=== PATIENT | female | born 1975 | race Caucasian/White ===

== ENCOUNTER 2017-02-23 10:15 | Day surgery (SDC) | payer MEDICAID ==
[~2017-02-23] VITALS: Ht 167.6 cm; Wt 139.0 kg
[~2017-02-23 10:15] MED LIST: BACL-19 PO; BUTA-177 PO; CARI250T PO; CYAN10005 PO; DIME240C PO; DIVA500T2 PO; FURO20TA3 PO; GABA300C10 PO; GABA800T2 PO; HYDR-3138 PO; IBUP800T PO; MAGN500T PO; METH750T87 PO; NAPR500T3 PO; ONDA4TAB7 PO; POTA10CA PO; SUMA100T3 PO; TRAM50TA2 PO; ZOLP10TA PO
[2017-02-23] MEDS ORDERED: MIDAZOLAM 1 MG/ML, 5ML ONE (12:18)
[2017-02-23] MEDS ORDERED: FENTANYL PF 100 MCG/2ML ONE (12:18)
[2017-02-23] MEDS ORDERED: ROCURONIUM 10 MG/ML ONE (12:26)
[2017-02-23] MEDS ORDERED: PROPOFOL 10 MG/ML, 20ML ONE (12:26)
[2017-02-23] MEDS ORDERED: SUCCINYLCHOLINE 20 MG/ML, 10ML ONE (12:26)
[2017-02-23] MEDS ORDERED: ONDANSETRON 2MG/ML, 2ML ONE (12:26)
[2017-02-23] MEDS ORDERED: GADOBUTROL 10 MMOL/10 ML PFS ONE (14:16)
[2017-02-23 15:26] LABS: HCG UR OBC PASS
[2017-02-23] MEDS: LACTATED RINGERS 1,000 ML IV SCH ×2 (15:59→19:01)
== END 2017-02-23 16:25 | disposition home or self-care (01) ==
LOC: SDC 10:15 → EDSTATUS 02-24 13:45
PROVIDERS: ATTEND Registered Nurse
DX: M51.24 Other intervertebral disc displacement, thoracic region (principal); M48.02 Spinal stenosis, cervical region; M50.31 Other cervical disc degeneration, high cervical region; G35 Multiple sclerosis; E66.01 Morbid (severe) obesity due to excess calories; Z68.42 Body mass index [BMI] 45.0-49.9, adult; G43.711 Chronic migraine without aura, intractable, with status migrainosus; M32.9 Systemic lupus erythematosus, unspecified; J45.909 Unspecified asthma, uncomplicated; F31.9 Bipolar disorder, unspecified; F17.210 Nicotine dependence, cigarettes, uncomplicated
CPT/HCPCS: 70553; 72156; 72157; 81025; A9585; J0330; J2250; J2405; J2704; J3010; J7120

== ENCOUNTER 2019-11-05 19:01 | Emergency (ER) | payer SELFPAY ==
[~2019-11-05] VITALS: Ht 167.6 cm; Wt 120.4 kg
[~2019-11-05 19:01] MED LIST changes: +CYAN-27 PO; -CYAN10005 PO; -GABA800T2 PO; +GABA800T5 PO; -HYDR-3138 PO; +HYDR-3237 PO; +IBUP-1223 PO; -IBUP800T PO; +NAPR-685 PO; -NAPR500T3 PO
[2019-11-05 19:32] VITALS: BP 156/96
[2019-11-05] MEDS ORDERED: LIDOCAINE-MPF 1%, 5ML ONE (19:56)
--- NOTE | 2019-11-05 19:57 | NUR ---
MEDS PULLED FOR PROVIDER ADMIN
[2019-11-05] MEDS ORDERED: LIDOCAINE 1%, 10ML INFIL ONE (20:00)
== END 2019-11-05 21:36 | disposition home or self-care (01) ==
LOC: ED 20:00
DX: L60.0 Ingrowing nail (principal); M79.674 Pain in right toe(s); F17.200 Nicotine dependence, unspecified, uncomplicated
CPT/HCPCS: 11730; 99284

== ENCOUNTER 2020-02-07 18:36 | Inpatient (IN) | payer MEDICAID ==
[~2020-02-07] VITALS: Ht 167.6 cm; Wt 93.3 kg
--- NOTE | 2020-02-07 19:00 | NUR ---
DR ESPINOSA BS FOR EXAM
--- NOTE | 2020-02-07 19:07 | NUR ---
RT LOWER ABD CYST; NOTICED A WEEK AGO. "WE'VE POKED IT WITH EVERYTHING AND I JUST GET A LITTLE PUS OUT".
[2020-02-07] MEDS ORDERED: AMPICILLIN/SULBACTAM 3 GM in SODIUM CHLORIDE 0.9% 100 ML IV ONE (19:09)
[2020-02-07] MEDS ORDERED: PRIMIDONE (19:17)
[2020-02-07] MEDS ORDERED: WELLBUTRIN (19:17)
[2020-02-07] MEDS ORDERED: MECL-101 PO (19:17)
[2020-02-07] MEDS ORDERED: LYRICA (19:17)
--- NOTE | 2020-02-07 19:24 | NUR ---
AMBULATORY TO & FROM [facility] W/OUT INCIDENT; GAIT STEADY.
[2020-02-07] MEDS ORDERED: SODIUM CHLORIDE FLUSH 10ML SYR IVF ONE (19:30)
[2020-02-07] MEDS ORDERED: LIDOCAINE 1%-EPI 1:100K, 20ML INFIL ONE (19:30)
[2020-02-07] MEDS ORDERED: ONDANSETRON 2MG/ML, 2ML IVPush ONE (19:30)
[2020-02-07 19:43] LABS: MEAN CORPUSCULAR HEMOGLOBIN 33.6 pg (27.0-34.8); MEAN CORPUSCULAR HGB CONC 33.7 g/dL (32.4-35.8); MEAN CORPUSCULAR VOLUME 99.9 fL (80-100); PLATELET COUNT 325 x10^3/uL (130-400); RED BLOOD COUNT 4.66 x10^6/uL (3.82-5.3); RED CELL DISTRIBUTION WIDTH 13.9 % (9.6-15.2)
--- NOTE | 2020-02-07 19:46 | NUR ---
IV INITIATED. BLD CX 2ND SET DRAWN
[2020-02-07] MEDS ORDERED: LIDOCAINE 1%-EPI 1:100K, 20ML ONE (19:48)
[2020-02-07] MEDS ORDERED: MORPHINE SULFATE 4 MG/ML, 1ML ONE ×2 (19:49→21:29)
[2020-02-07] MEDS ORDERED: ONDANSETRON 2MG/ML, 2ML ONE (19:49)
[2020-02-07 19:50] LABS: ALANINE AMINOTRANSFERASE 31 U/L (12-78); ALBUMIN 3.2 g/dL (3.4-5.0); ANION GAP 8 mmol/L (5-15); CALCIUM 8.7 mg/dL (8.5-10.1); CHLORIDE 101 mmol/L (98-107); CREATININE 0.77 mg/dL (0.55-1.02)
[2020-02-07 19:52] LABS: ALKALINE PHOSPHATASE 177 U/L (45-117); BILIRUBIN,TOTAL 0.4 mg/dL (0.2-1.0); TOTAL PROTEIN 7.2 g/dL (6.4-8.2)
[2020-02-07 19:58] LABS: MICROSCOPIC NOT IND
--- NOTE | 2020-02-07 19:58 | NUR ---
DR ESPINOSA BS FOR I&D.
[2020-02-07] MEDS: MORPHINE SULFATE 4 MG/ML, 1ML IVPush PRN ×2 (19:59→21:36)
--- NOTE | 2020-02-07 20:01 | NUR ---
ZOFRAN AND MORPHINE GIVEN PER EMAR.
--- NOTE | 2020-02-07 20:35 | NUR ---
PT TO CT PER OZZY
[2020-02-07 20:40] LABS: BASOPHILS % (AUTO) 0 % (0-1); EOSINOPHILS # (AUTO) 0.36 x10^3/uL (0-0.4); EOSINOPHILS % (AUTO) 3 % (1-7); LYMPHOCYTES # (AUTO) 1.77 x10^3/uL (1-3.4); LYMPHOCYTES % (AUTO) 14 % (22-44); MD SCAN; MONOCYTES # (AUTO) 0.56 x10^3/uL (0.2-0.8); MONOCYTES % (AUTO) 4 % (2-9); NEUTROPHILS # (AUTO) 10.35 x10^3/uL (1.8-6.8); NEUTROPHILS % (AUTO) 79 % (42-75)
--- NOTE | 2020-02-07 20:55 | NUR ---
HOSPITALIST BS FOR EXAM, ASSISTED BY THIS RN. PT C/O PAIN. PAIN MED TO BE ORDERED.
[2020-02-07] MEDS ORDERED: hydrALAzine 20 MG/ML, 1ML IVPush PRN (21:00)
[2020-02-07] MEDS ORDERED: ONDANSETRON 2MG/ML, 2ML IVPush PRN (21:00)
[2020-02-07] MEDS: SODIUM CHLORIDE 0.9% 1,000 ML IV SCH (21:26)
--- NOTE | 2020-02-07 21:37 | NUR ---
PT EXPERIENCING ITCHINESS TO LT ARM POST IV MORPHINE INJECTION. WILL NOTIFY ERP.
[2020-02-07] MEDS ORDERED: DIPHENHYDRAMINE 50 MG/ML, 1ML ONE (21:41)
--- NOTE | 2020-02-07 21:45 | NUR ---
BENADRYL GIVEN PER EMAR.
[2020-02-07] MEDS ORDERED: DIPHENHYDRAMINE 50 MG/ML, 1ML IVPush ONE (22:00)
--- NOTE | 2020-02-07 22:08 | NUR ---
CALLED RECEIVING UNIT; RN NOT CURRENTLY AVAILABLE, SHE WILL CALL BACK.
--- NOTE | 2020-02-07 22:16 | NUR ---
PT REPORT TO LUCY FALCON FOR ROOM 360
[2020-02-07 23:11] VITALS: BP 112/73
[2020-02-08 00:19] VITALS: BP 112/73
[2020-02-08] MEDS: SODIUM CHLORIDE 0.9% 1,000 ML IV SCH ×2 (02:07→11:41)
[2020-02-08] MEDS: morphine SULFATE 10 MG/ML, 1ML IVPush PRN ×5 (02:07→21:02)
[2020-02-08] MEDS: CLINDAMYCIN PMX 600MG/50ML 50 ML IV SCH ×4 (05:35→23:10)
[2020-02-08 06:37] LABS: BASOPHILS # (AUTO) 0.03 x10^3/uL (0-0.1); BASOPHILS % (AUTO) 0 % (0-1); EOSINOPHILS # (AUTO) 0.25 x10^3/uL (0-0.4); EOSINOPHILS % (AUTO) 2 % (1-7); LYMPHOCYTES # (AUTO) 2.14 x10^3/uL (1-3.4); LYMPHOCYTES % (AUTO) 19 % (22-44); MD NO; MEAN CORPUSCULAR HEMOGLOBIN 33.1 pg (27.0-34.8); MEAN CORPUSCULAR HGB CONC 33.1 g/dL (32.4-35.8); MEAN CORPUSCULAR VOLUME 100.2 fL (80-100); MEAN PLATELET VOLUME 8.4 fL (7.4-10.4); MONOCYTES # (AUTO) 0.79 x10^3/uL (0.2-0.8); MONOCYTES % (AUTO) 7 % (2-9); NEUTROPHILS # (AUTO) 7.91 x10^3/uL (1.8-6.8); NEUTROPHILS % (AUTO) 71 % (42-75); PLATELET COUNT 293 x10^3/uL (130-400); RED BLOOD COUNT 4.33 x10^6/uL (3.82-5.3); RED CELL DISTRIBUTION WIDTH 13.8 % (9.6-15.2)
[2020-02-08 06:45] LABS: ANION GAP 9 mmol/L (5-15); CALCIUM 8.1 mg/dL (8.5-10.1); CHLORIDE 106 mmol/L (98-107)
[2020-02-08 06:46] LABS: CREATININE 0.56 mg/dL (0.55-1.02)
[2020-02-08 07:52] VITALS: BP 144/81
[2020-02-08] MEDS: INSULIN LISPRO 100 UNITS/ML, PEN SQ-INSULIN SCH ×5 (08:00→22:03)
[2020-02-08] MEDS: DOXYCYCLINE 100MG TABLET PO SCH ×2 (08:57→21:03)
[2020-02-08] MEDS: HYDROcodone/APAP 5/325 TABLET PO PRN ×2 (11:41→19:27)
[2020-02-08] MEDS ORDERED: SUMATRIPTAN 100 MG TABLET PO PRN (12:00)
[2020-02-08] MEDS ORDERED: PREG300C PO (12:15)
[2020-02-08] MEDS ORDERED: PRIM50TA34 PO (12:21)
[2020-02-08] MEDS ORDERED: BUPR150T73 PO (12:22)
[2020-02-08] MEDS: BUTALB/APAP/CAFFEINE 50MG/325MG/40MG PO PRN (12:32)
[2020-02-08 13:56] VITALS: BP 153/82
[2020-02-08] MEDS: METHOCARBAMOL 750 MG TABLET PO SCH ×2 (14:31→22:03)
[2020-02-08] MEDS: INSULIN GLARGINE 100 UNITS/ML, PEN SQ-INSULIN SCH ×2 (15:42→22:03)
[2020-02-08 18:28] VITALS: BP 136/75
[2020-02-08] MEDS: PRIMIDONE 50 MG TABLET PO SCH (21:02)
[2020-02-08] MEDS: ZOLPIDEM 10MG TABLET PO SCH (21:03)
[2020-02-08] MEDS: ACETAMINOPHEN 325 MG TABLET PO PRN (21:03)
[2020-02-08] MEDS: BUPROPION SR 150 MG TABLET PO SCH (21:03)
[2020-02-09 00:49] VITALS: BP 111/68
[2020-02-09] MEDS: HYDROcodone/APAP 5/325 TABLET PO PRN ×3 (04:38→18:48)
[2020-02-09] MEDS: METHOCARBAMOL 750 MG TABLET PO SCH ×3 (05:30→22:09)
[2020-02-09] MEDS: CLINDAMYCIN PMX 600MG/50ML 50 ML IV SCH ×4 (05:30→23:16)
[2020-02-09] MEDS: INSULIN LISPRO 100 UNITS/ML, PEN SQ-INSULIN SCH ×4 (08:00→21:58)
[2020-02-09] MEDS ORDERED: INSULIN GLARGINE 100 UNITS/ML, PEN SQ-INSULIN SCH (09:00)
[2020-02-09] MEDS: BUPROPION SR 150 MG TABLET PO SCH ×2 (09:23→21:50)
[2020-02-09] MEDS: PRIMIDONE 50 MG TABLET PO SCH ×2 (09:23→21:51)
[2020-02-09] MEDS: DOXYCYCLINE 100MG TABLET PO SCH ×2 (09:23→21:50)
[2020-02-09] MEDS: morphine SULFATE 10 MG/ML, 1ML IVPush PRN ×3 (09:36→21:48)
[2020-02-09 10:50] VITALS: BP 138/77
[2020-02-09] MEDS: BUTALB/APAP/CAFFEINE 50MG/325MG/40MG PO PRN (11:46)
[2020-02-09] MEDS: ACETAMINOPHEN 325 MG TABLET PO PRN (14:24)
[2020-02-09 14:57] VITALS: BP 130/72
[2020-02-09 21:45] VITALS: BP 138/72
[2020-02-09] MEDS: ZOLPIDEM 10MG TABLET PO SCH (21:51)
[2020-02-09] MEDS: INSULIN GLARGINE 100 UNITS/ML, PEN SQ-INSULIN SCH (21:59)
[2020-02-10] MEDS: morphine SULFATE 10 MG/ML, 1ML IVPush PRN ×3 (01:13→11:09)
[2020-02-10] MEDS: CLINDAMYCIN PMX 600MG/50ML 50 ML IV SCH ×4 (05:36→22:39)
[2020-02-10] MEDS: METHOCARBAMOL 750 MG TABLET PO SCH ×3 (05:42→22:40)
[2020-02-10 07:30] VITALS: BP 131/81
[2020-02-10] MEDS: INSULIN LISPRO 100 UNITS/ML, PEN SQ-INSULIN SCH ×4 (08:20→23:02)
[2020-02-10] MEDS: INSULIN GLARGINE 100 UNITS/ML, PEN SQ-INSULIN SCH (08:21)
[2020-02-10] MEDS: PRIMIDONE 50 MG TABLET PO SCH ×2 (08:21→22:40)
[2020-02-10] MEDS: DOXYCYCLINE 100MG TABLET PO SCH ×2 (08:21→22:40)
[2020-02-10] MEDS: BUPROPION SR 150 MG TABLET PO SCH ×2 (08:21→22:40)
[2020-02-10] MEDS: HYDROcodone/APAP 5/325 TABLET PO PRN ×3 (08:54→22:42)
[2020-02-10] MEDS: BUTALB/APAP/CAFFEINE 50MG/325MG/40MG PO PRN ×2 (11:32→23:35)
[2020-02-10 15:07] VITALS: BP 134/78
[2020-02-10] MEDS ORDERED: INSULIN GLARGINE 100 UNITS/ML, PEN SQ-INSULIN SCH (21:00)
[2020-02-10] MEDS: ZOLPIDEM 10MG TABLET PO SCH (22:41)
[2020-02-10] MEDS: ACETAMINOPHEN 325 MG TABLET PO PRN (23:35)
[2020-02-11] MEDS: CLINDAMYCIN PMX 600MG/50ML 50 ML IV SCH ×4 (00:43→18:19)
[2020-02-11] MEDS: morphine SULFATE 10 MG/ML, 1ML IVPush PRN ×4 (00:43→21:38)
[2020-02-11 00:52] VITALS: BP 124/73
[2020-02-11 06:06] LABS: BASOPHILS # (AUTO) 0.03 x10^3/uL (0-0.1); BASOPHILS % (AUTO) 1 % (0-1); EOSINOPHILS # (AUTO) 0.42 x10^3/uL (0-0.4); EOSINOPHILS % (AUTO) 6 % (1-7); LYMPHOCYTES # (AUTO) 2.08 x10^3/uL (1-3.4); LYMPHOCYTES % (AUTO) 31 % (22-44); MD NO; MEAN CORPUSCULAR HEMOGLOBIN 33.2 pg (27.0-34.8); MEAN CORPUSCULAR HGB CONC 33.1 g/dL (32.4-35.8); MEAN CORPUSCULAR VOLUME 100.4 fL (80-100); MONOCYTES # (AUTO) 0.52 x10^3/uL (0.2-0.8); MONOCYTES % (AUTO) 8 % (2-9); NEUTROPHILS # (AUTO) 3.68 x10^3/uL (1.8-6.8); NEUTROPHILS % (AUTO) 55 % (42-75); PLATELET COUNT 321 x10^3/uL (130-400); RED BLOOD COUNT 4.32 x10^6/uL (3.82-5.3); RED CELL DISTRIBUTION WIDTH 13.9 % (9.6-15.2)
[2020-02-11 06:07] LABS: ANION GAP 6 mmol/L (5-15); CHLORIDE 107 mmol/L (98-107)
[2020-02-11 06:08] LABS: CREATININE 0.47 mg/dL (0.55-1.02)
[2020-02-11] MEDS: METHOCARBAMOL 750 MG TABLET PO SCH ×3 (06:30→21:52)
[2020-02-11 07:55] VITALS: BP 144/74
[2020-02-11] MEDS: BUPROPION SR 150 MG TABLET PO SCH ×2 (08:02→21:38)
[2020-02-11] MEDS: PRIMIDONE 50 MG TABLET PO SCH ×2 (08:02→21:39)
[2020-02-11] MEDS: DOXYCYCLINE 100MG TABLET PO SCH ×2 (08:02→21:39)
[2020-02-11] MEDS: INSULIN LISPRO 100 UNITS/ML, PEN SQ-INSULIN SCH ×4 (08:03→21:49)
[2020-02-11] MEDS: BUTALB/APAP/CAFFEINE 50MG/325MG/40MG PO PRN ×2 (08:21→21:38)
[2020-02-11] MEDS: ACETAMINOPHEN 325 MG TABLET PO PRN (08:21)
[2020-02-11] MEDS: HYDROcodone/APAP 5/325 TABLET PO PRN ×2 (08:21→14:21)
[2020-02-11] MEDS ORDERED: INSULIN GLARGINE 100 UNITS/ML, PEN SQ-INSULIN SCH ×2 (09:00→21:00)
[2020-02-11 15:25] VITALS: BP 146/93
[2020-02-11 20:58] VITALS: BP 117/76
[2020-02-11] MEDS: ZOLPIDEM 10MG TABLET PO SCH (21:38)
[2020-02-12] MEDS: CLINDAMYCIN PMX 600MG/50ML 50 ML IV SCH ×3 (01:09→12:17)
[2020-02-12 03:39] VITALS: BP 111/66
[2020-02-12] MEDS: METHOCARBAMOL 750 MG TABLET PO SCH ×2 (06:58→14:32)
[2020-02-12 07:54] VITALS: BP 138/71
[2020-02-12] MEDS: INSULIN LISPRO 100 UNITS/ML, PEN SQ-INSULIN SCH ×2 (08:07→12:15)
[2020-02-12] MEDS: HYDROcodone/APAP 5/325 TABLET PO PRN ×2 (08:14→14:33)
[2020-02-12] MEDS: PRIMIDONE 50 MG TABLET PO SCH (08:14)
[2020-02-12] MEDS: DOXYCYCLINE 100MG TABLET PO SCH (08:14)
[2020-02-12] MEDS: BUPROPION SR 150 MG TABLET PO SCH (08:14)
[2020-02-12] MEDS ORDERED: INSULIN GLARGINE 100 UNITS/ML, PEN SQ-INSULIN SCH (09:00)
[2020-02-12] MEDS: BUTALB/APAP/CAFFEINE 50MG/325MG/40MG PO PRN (10:30)
[2020-02-12 14:45] VITALS: BP 127/81
[2020-02-12] MEDS ORDERED: INSU100I11 SQ-INSULIN (15:03)
[2020-02-12] MEDS ORDERED: INSU100I13 SQ-INSULIN (15:03)
[2020-02-12] MEDS ORDERED: CLIN300C8 PO (15:12)
[2020-02-12] MEDS ORDERED: OXYC5TAB3 PO (15:24)
[2020-02-12] MEDS ORDERED: OXYcodone IR 5MG TABLET PO PRN (15:30)
== END 2020-02-12 16:53 | disposition home or self-care (01) | DRG 602 ==
LOC: ED 20:09 → EDIP 20:49 → 3N 22:45
PROVIDERS: ADMIT Internal Medicine; ATTEND Hospitalist
DX: L03.314 Cellulitis of groin (principal); J18.9 Pneumonia, unspecified organism; Z68.41 Body mass index [BMI] 40.0-44.9, adult; E11.9 Type 2 diabetes mellitus without complications; L03.311 Cellulitis of abdominal wall; E66.01 Morbid (severe) obesity due to excess calories; F17.200 Nicotine dependence, unspecified, uncomplicated; F32.9 Major depressive disorder, single episode, unspecified; M79.7 Fibromyalgia; R53.82 Chronic fatigue, unspecified; G43.909 Migraine, unspecified, not intractable, without status migrainosus; G35 Multiple sclerosis; M32.9 Systemic lupus erythematosus, unspecified; Z88.1 Allergy status to other antibiotic agents; Z82.3 Family history of stroke; Z87.01 Personal history of pneumonia (recurrent)
CPT/HCPCS: 36415; 71045; 72192; 80048; 80053; 81003; 82962; 83036; 83605; 84145; 85025; 87040; 96365; 96375; 99285; G0378; J0295; J2405; J3490; J1200; J1815; J2270; J7030

== ENCOUNTER 2020-09-22 01:55 | Inpatient (IN) | payer MEDICAID ==
[~2020-09-22] VITALS: Ht 167.6 cm; Wt 144.8 kg
[~2020-09-22 01:55] MED LIST changes: +BUPR150T73 PO; +CLIN300C9 PO; +INSU100I11 SQ-INSULIN; +INSU100I13 SQ-INSULIN; +LYRICA; +MECL-101 PO; +OXYC5TAB3 PO; +PREG300C PO; +PRIM50TA34 PO; +PRIMIDONE; +WELLBUTRIN
[2020-09-22] MEDS ORDERED: SODIUM CHLORIDE 0.9% 1,000ML IVBOLUS ONE ×2 (02:30→03:00)
[2020-09-22] MEDS ORDERED: ONDANSETRON 2MG/ML, 2ML IVPush ONE (02:30)
[2020-09-22] MEDS ORDERED: ONDANSETRON 2MG/ML, 2ML ONE (02:42)
[2020-09-22] MEDS ORDERED: MORPHINE SULFATE 4 MG/ML, 1ML ONE ×2 (02:42→03:39)
[2020-09-22 02:54] LABS: BASOPHILS % (AUTO) 0 % (0-1); EOSINOPHILS % (AUTO) 1 % (1-7); LYMPHOCYTES % (AUTO) 6 % (22-44); MEAN CORPUSCULAR HGB CONC 33.4 g/dL (32.4-35.8); MEAN PLATELET VOLUME 8.1 fL (7.4-10.4); MONOCYTES % (AUTO) 3 % (2-9); NEUTROPHILS % (AUTO) 90 % (42-75); PLATELET COUNT 194 x10^3/uL (130-400); RED BLOOD COUNT 4.59 x10^6/uL (3.82-5.3); RED CELL DISTRIBUTION WIDTH 14.4 % (9.6-15.2)
[2020-09-22] MEDS: MORPHINE SULFATE 4 MG/ML, 1ML IVPush PRN ×2 (02:57→03:46)
[2020-09-22] MEDS ORDERED: CEFTRIAXONE PMX 1GM/50ML 50 ML ONE (02:59)
[2020-09-22] MEDS ORDERED: AZITHROMYCIN 500 MG in SODIUM CHLORIDE 0.9% 250 ML IV ONE (03:00)
[2020-09-22] MEDS ORDERED: CEFTRIAXONE PMX 1GM/50ML 50 ML IV ONE (03:00)
[2020-09-22 03:03] LABS: ALANINE AMINOTRANSFERASE 19 U/L (12-78); ALBUMIN 2.6 g/dL (3.4-5.0); ANION GAP 7 mmol/L (5-15); CHLORIDE 105 mmol/L (98-107)
[2020-09-22 03:06] LABS: ALKALINE PHOSPHATASE 169 U/L (45-117); BILIRUBIN,TOTAL 0.9 mg/dL (0.2-1.0); CREATININE 0.77 mg/dL (0.55-1.02); TOTAL PROTEIN 7.1 g/dL (6.4-8.2); TROPONIN I < 0.015 ng/mL (0.000-0.045)
[2020-09-22 03:39] LABS: MD SCAN
[2020-09-22] MEDS ORDERED: BENZONATATE 100 MG CAPSULE ONE (03:39)
[2020-09-22] MEDS ORDERED: SODIUM CHLORIDE 0.9% 1,000 ML IV ONE (04:00)
--- NOTE | 2020-09-22 04:17 | NUR ---
Report to Venessa AYALA
[2020-09-22 05:00] VITALS: BP 110/66
[2020-09-22] MEDS ORDERED: morphine SULFATE 10 MG/ML, 1ML IVPush PRN (05:30)
[2020-09-22] MEDS ORDERED: METHOCARBAMOL 750 MG TABLET PO PRN (05:30)
[2020-09-22] MEDS ORDERED: MECLIZINE 25 MG TABLET PO PRN (05:30)
[2020-09-22] MEDS ORDERED: hydrALAzine 20 MG/ML, 1ML IVPush PRN (05:30)
[2020-09-22] MEDS ORDERED: ONDANSETRON 2MG/ML, 2ML IVPush PRN (05:30)
[2020-09-22] MEDS ORDERED: ENOXAPARIN 30 MG/0.3 ML SQ SCH (05:30)
[2020-09-22 05:53] VITALS: BP 109/64
[2020-09-22] MEDS: OXYcodone IR 5MG TABLET PO PRN ×2 (06:08→17:31)
[2020-09-22 06:37] LABS: C-REACTIVE PROTEIN, QUANT > 19.00 mg/dL (0.02-0.49)
[2020-09-22 07:08] VITALS: BP 90/61
[2020-09-22] MEDS ORDERED: OMNIPAQUE 350 MG/ML, 75ML BOTTLE ONE (08:21)
[2020-09-22] MEDS ORDERED: DEXAMETHASONE 4 MG/ML, 1ML IVPush SCH (09:00)
[2020-09-22] MEDS ORDERED: DOXYCYCLINE 100MG TABLET PO SCH (09:00)
[2020-09-22] MEDS ORDERED: CHOLECALCIFEROL 5,000u TAB PO SCH (09:00)
[2020-09-22] MEDS ORDERED: THIAMINE 100MG TABLET PO SCH (09:00)
[2020-09-22] MEDS: ACETAMINOPHEN 325 MG TABLET PO PRN (09:21)
[2020-09-22] MEDS: PRIMIDONE 50 MG TABLET PO SCH ×2 (09:21→21:22)
[2020-09-22] MEDS: BUPROPION SR 150 MG TABLET PO SCH ×2 (09:21→21:22)
[2020-09-22] MEDS ORDERED: REMDESIVIR 200 MG in SODIUM CHLORIDE 0.9% 250 ML IVPB ONE (10:30)
[2020-09-22] MEDS: ASCORBIC ACID 500 MG TABLET PO SCH ×2 (10:31→17:30)
[2020-09-22] MEDS: CEFTRIAXONE PMX 2GM/50ML 50 ML IV SCH (10:31)
[2020-09-22] MEDS ORDERED: ALBUTEROL HFA 90 MCG/SPRAY INH PRN (11:00)
[2020-09-22] MEDS: INSULIN GLARGINE 100 UNITS/ML, PEN SQ-INSULIN SCH ×2 (11:37→21:23)
[2020-09-22] MEDS ORDERED: ZINC SULFATE 220 MG CAPSULE PO SCH (12:00)
[2020-09-22 12:14] VITALS: BP 105/66
[2020-09-22] MEDS ORDERED: KETOROLAC 30 MG/1 ML ONE (13:35)
[2020-09-22] MEDS: KETOROLAC 30 MG/1 ML IM SCH ×2 (15:27→21:24)
[2020-09-22] MEDS: methylPREDNISolone SOD SUCC 40 MG/ML IV SCH (17:31)
[2020-09-22] MEDS: INSULIN LISPRO 100 UNITS/ML, PEN SQ-INSULIN SCH ×2 (18:53→21:23)
[2020-09-22 19:18] VITALS: BP 117/77
[2020-09-22] MEDS ORDERED: MELATONIN 5 MG TABLET PO SCH (21:00)
[2020-09-22] MEDS: GUAIFENESIN/COD200MG-20MG/10ML LIQUID PO PRN (21:21)
[2020-09-22] MEDS: ZOLPIDEM 10MG TABLET PO SCH (21:22)
[2020-09-23 01:02] VITALS: BP 107/68
[2020-09-23] MEDS ORDERED: AZITHROMYCIN 500 MG in SODIUM CHLORIDE 0.9% 250 ML IV SCH (03:00)
[2020-09-23] MEDS: KETOROLAC 30 MG/1 ML IM SCH ×4 (03:26→22:34)
[2020-09-23] MEDS: methylPREDNISolone SOD SUCC 40 MG/ML IV SCH ×2 (03:26→10:08)
[2020-09-23 06:43] VITALS: BP 112/63
[2020-09-23 07:14] LABS: ANION GAP 8 mmol/L (5-15); CALCIUM 8.9 mg/dL (8.5-10.1); CHLORIDE 106 mmol/L (98-107); CREATININE 0.65 mg/dL (0.55-1.02)
[2020-09-23 07:15] LABS: ALBUMIN 2.4 g/dL (3.4-5.0); ANION GAP 7 mmol/L (5-15); CALCIUM 8.7 mg/dL (8.5-10.1); CHLORIDE 106 mmol/L (98-107)
[2020-09-23 07:17] LABS: BASOPHILS % (AUTO) 1 % (0-1); EOSINOPHILS % (AUTO) 1 % (1-7); LYMPHOCYTES % (AUTO) 11 % (22-44); MEAN CORPUSCULAR HEMOGLOBIN 32.7 pg (27.0-34.8); MEAN CORPUSCULAR HGB CONC 33.2 g/dL (32.4-35.8); MEAN PLATELET VOLUME 8.5 fL (7.4-10.4); MONOCYTES % (AUTO) 4 % (2-9); NEUTROPHILS % (AUTO) 84 % (42-75); PLATELET COUNT 239 x10^3/uL (130-400); RED BLOOD COUNT 3.97 x10^6/uL (3.82-5.3); RED CELL DISTRIBUTION WIDTH 14.3 % (9.6-15.2)
[2020-09-23 07:18] LABS: ALANINE AMINOTRANSFERASE 16 U/L (12-78); ALKALINE PHOSPHATASE 150 U/L (45-117); BILIRUBIN,TOTAL 0.3 mg/dL (0.2-1.0); CREATININE 0.71 mg/dL (0.55-1.02); TOTAL PROTEIN 7.1 g/dL (6.4-8.2)
[2020-09-23 07:46] LABS: INTERNATIONAL NORMALIZED RATIO 1.03 (0.93-1.1); PROTHROMBIN TIME 10.9 Seconds (9.6-11.5)
[2020-09-23 07:57] LABS: MD SCAN
[2020-09-23] MEDS: INSULIN GLARGINE 100 UNITS/ML, PEN SQ-INSULIN SCH (08:22)
[2020-09-23] MEDS: CEFTRIAXONE PMX 2GM/50ML 50 ML IV SCH (08:23)
[2020-09-23] MEDS: GUAIFENESIN/COD200MG-20MG/10ML LIQUID PO PRN ×2 (08:23→22:33)
[2020-09-23] MEDS: INSULIN LISPRO 100 UNITS/ML, PEN SQ-INSULIN SCH ×3 (08:23→15:23)
[2020-09-23] MEDS: ENOXAPARIN 40 MG/0.4 ML SQ SCH (08:24)
[2020-09-23] MEDS: PRIMIDONE 50 MG TABLET PO SCH ×2 (08:24→22:33)
[2020-09-23] MEDS: BUPROPION SR 150 MG TABLET PO SCH ×2 (08:24→22:33)
[2020-09-23] MEDS ORDERED: REMDESIVIR 100 MG in SODIUM CHLORIDE 0.9% 250 ML IVPB SCH (10:30)
[2020-09-23 12:03] VITALS: BP 113/70
[2020-09-23 18:20] VITALS: BP 127/77
[2020-09-23] MEDS: DOXYCYCLINE 100 MG in DEXTROSE 5% 250 ML IV SCH (21:00)
[2020-09-23] MEDS: ZOLPIDEM 10MG TABLET PO SCH (22:33)
[2020-09-24] MEDS: INSULIN GLARGINE 100 UNITS/ML, PEN SQ-INSULIN SCH ×3 (00:16→21:09)
[2020-09-24] MEDS: INSULIN LISPRO 100 UNITS/ML, PEN SQ-INSULIN SCH ×5 (00:19→21:00)
[2020-09-24 00:29] VITALS: BP 115/63
[2020-09-24] MEDS: GUAIFENESIN/COD200MG-20MG/10ML LIQUID PO PRN ×3 (05:13→21:09)
[2020-09-24] MEDS: KETOROLAC 30 MG/1 ML IM SCH ×4 (05:13→21:10)
[2020-09-24 06:35] LABS: ALANINE AMINOTRANSFERASE 13 U/L (12-78); ALBUMIN 2.3 g/dL (3.4-5.0); ANION GAP 8 mmol/L (5-15); CALCIUM 8.1 mg/dL (8.5-10.1); CHLORIDE 106 mmol/L (98-107); CREATININE 0.69 mg/dL (0.55-1.02)
[2020-09-24 06:38] LABS: ALKALINE PHOSPHATASE 136 U/L (45-117); BILIRUBIN,TOTAL 0.3 mg/dL (0.2-1.0); TOTAL PROTEIN 6.7 g/dL (6.4-8.2)
[2020-09-24 06:58] VITALS: BP 111/62
[2020-09-24] MEDS: PRIMIDONE 50 MG TABLET PO SCH ×2 (08:35→21:10)
[2020-09-24] MEDS: BUPROPION SR 150 MG TABLET PO SCH ×2 (08:35→21:10)
[2020-09-24] MEDS: methylPREDNISolone SOD SUCC 40 MG/ML IV SCH (08:35)
[2020-09-24] MEDS: ENOXAPARIN 40 MG/0.4 ML SQ SCH (08:37)
[2020-09-24] MEDS: DOXYCYCLINE 100 MG in DEXTROSE 5% 250 ML IV SCH ×2 (08:37→20:00)
[2020-09-24 09:57] LABS: BASOPHILS % (AUTO) 1 % (0-1); EOSINOPHILS % (AUTO) 2 % (1-7); LYMPHOCYTES % (AUTO) 22 % (22-44); MEAN CORPUSCULAR HEMOGLOBIN 33.1 pg (27.0-34.8); MEAN CORPUSCULAR HGB CONC 33.8 g/dL (32.4-35.8); MONOCYTES % (AUTO) 3 % (2-9); NEUTROPHILS % (AUTO) 73 % (42-75); PLATELET COUNT 168 x10^3/uL (130-400); RED BLOOD COUNT 4.12 x10^6/uL (3.82-5.3); RED CELL DISTRIBUTION WIDTH 14.3 % (9.6-15.2)
[2020-09-24 10:25] LABS: MD SCAN
[2020-09-24] MEDS: CEFTRIAXONE PMX 2GM/50ML 50 ML IV SCH (11:25)
[2020-09-24 12:07] VITALS: BP 137/74
[2020-09-24] MEDS ORDERED: POTASSIUM CHLORIDE 20 MEQ TAB.ER.PRT PO ONE ×2 (12:30→15:00)
[2020-09-24 19:16] VITALS: BP 138/76
[2020-09-24] MEDS: ZOLPIDEM 10MG TABLET PO SCH (21:10)
[2020-09-25] MEDS: ACETAMINOPHEN 325 MG TABLET PO PRN (00:41)
[2020-09-25 00:45] VITALS: BP 129/77
[2020-09-25] MEDS: KETOROLAC 30 MG/1 ML IM SCH ×2 (03:37→11:38)
[2020-09-25 06:22] LABS: ALBUMIN 2.3 g/dL (3.4-5.0); CHLORIDE 111 mmol/L (98-107)
[2020-09-25 06:30] LABS: ALANINE AMINOTRANSFERASE 16 U/L (12-78); ALKALINE PHOSPHATASE 116 U/L (45-117); ANION GAP 5 mmol/L (5-15); BILIRUBIN,TOTAL 0.3 mg/dL (0.2-1.0); CALCIUM 8.5 mg/dL (8.5-10.1); CREATININE 0.65 mg/dL (0.55-1.02); TOTAL PROTEIN 6.1 g/dL (6.4-8.2)
[2020-09-25 06:58] VITALS: BP 131/66
[2020-09-25] MEDS: INSULIN LISPRO 100 UNITS/ML, PEN SQ-INSULIN SCH ×2 (07:00→11:37)
[2020-09-25] MEDS ORDERED: POTASSIUM CHLORIDE 20 MEQ TAB.ER.PRT PO ONE (07:30)
[2020-09-25] MEDS: BUPROPION SR 150 MG TABLET PO SCH (09:19)
[2020-09-25] MEDS: PRIMIDONE 50 MG TABLET PO SCH (09:19)
[2020-09-25] MEDS: DOXYCYCLINE 100 MG in DEXTROSE 5% 250 ML IV SCH (09:19)
[2020-09-25] MEDS: ENOXAPARIN 40 MG/0.4 ML SQ SCH (09:22)
[2020-09-25] MEDS ORDERED: INSULIN GLARGINE 100 UNITS/ML, PEN SQ-INSULIN SCH (09:30)
[2020-09-25] MEDS ORDERED: CEFD300C37 PO (12:04)
[2020-09-25] MEDS ORDERED: METH4TAB2 PO (12:05)
[2020-09-25] MEDS ORDERED: DOXY100T PO (12:05)
[2020-09-25] MEDS: CEFTRIAXONE PMX 2GM/50ML 50 ML IV SCH (12:45)
[2020-09-25 12:57] VITALS: BP 113/77
[2020-09-25] MEDS ORDERED: GUAI400T81 PO (13:16)
[2020-09-25] MEDS ORDERED: ENOXAPARIN 30 MG/0.3 ML SQ SCH (21:00)
== END 2020-09-25 15:29 | disposition home or self-care (01) | DRG 871 ==
LOC: ED 03:31 → EDIP 03:52 → 4EST 04:29 → 3N 09-24 23:10
PROVIDERS: ADMIT Family Medicine; ATTEND Hospitalist
DX: A41.9 Sepsis, unspecified organism (principal); J18.9 Pneumonia, unspecified organism; J96.01 Acute respiratory failure with hypoxia; F11.20 Opioid dependence, uncomplicated; J44.0 Chronic obstructive pulmonary disease with (acute) lower respiratory infection; J44.1 Chronic obstructive pulmonary disease with (acute) exacerbation; Z20.822 Contact with and (suspected) exposure to COVID-19; E11.9 Type 2 diabetes mellitus without complications; E66.01 Morbid (severe) obesity due to excess calories; F17.210 Nicotine dependence, cigarettes, uncomplicated; G35 Multiple sclerosis; M79.7 Fibromyalgia; R53.82 Chronic fatigue, unspecified; R65.20 Severe sepsis without septic shock; Z79.4 Long term (current) use of insulin
CPT/HCPCS: 36415; 71045; 71275; 80048; 80053; 82728; 82962; 83605; 83615; 84145; 84484; 85025; 85379; 85610; 86140; 87040; 93005; G0378; J0456; J0696; J1100; J1650; J1885; J2405; J7060; Q9967; J1815; J2270; J2920; J7030; J7050; J7512; U0003